=== PATIENT | male | born 1985 | race Caucasian/White ===

== ENCOUNTER 2017-12-30 15:26 | Emergency (ER) | payer SELFPAY ==
[~2017-12-30] VITALS: Ht 175.3 cm; Wt 77.0 kg
[~2017-12-30 15:26] MED LIST: PROC10TA4 PO
[2017-12-30 15:36] VITALS: BP 144/82; PULSE 92; RESP 16; TEMP 98.7; O2SAT 92
[2017-12-30] MEDS ORDERED: ONDANSETRON ODT 4 MG TAB PO ONE (16:00)
[2017-12-30] MEDS ORDERED: ACETAMINOPHEN 325 MG TAB PO ONE (16:00)
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
[2017-12-30 16:46] VITALS: BP 136/68; PULSE 88; RESP 16; O2SAT 100
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
[2017-12-30] MEDS ORDERED: TYLE325T PO (17:44)
== END 2017-12-30 18:04 | disposition home or self-care (01) ==
LOC: PHED 15:26
DX: S09.90XA Unspecified injury of head, initial encounter (principal); S20.212A Contusion of left front wall of thorax, initial encounter; M50.321 Other cervical disc degeneration at C4-C5 level; M50.322 Other cervical disc degeneration at C5-C6 level; Z88.0 Allergy status to penicillin; Y04.0XXA Assault by unarmed brawl or fight, initial encounter
CPT/HCPCS: 70450; 71101; 72125; 99284